=== PATIENT | male | born 1960 | race Caucasian/White ===

== ENCOUNTER 2023-08-28 04:18 | Inpatient (IN) | payer BC, SELFPAY ==
[2023-08-27 22:23] VITALS: BP 135/92
[2023-08-27 22:45] LABS: % Basophils 0.8 % (0-2); % Eosinophils 1.7 % (0-6); % Immature Granulocytes 0.4 % (0-0.5); % Lymphocytes 20.3 % (20.5-51.1); % Monocytes 7.9 % (1.7-9.3); % Neutrophils 68.9 % (42.2-75.2); Absolute Basophils 0.1 10^3/uL (0-0.2); Absolute Eosinophils 0.2 10^3/uL (0-0.7); Absolute Lymphocytes 2.1 10^3/uL (1.2-3.4); Absolute Monocytes 0.8 10^3/uL (0.1-0.6); Hematocrit 41.6 % (39.0-52.0); Hemoglobin 14.8 g/dL (13.0-18.0); Mean Corp Hgb Conc. 35.6 g/dL (33.0-37.0); Mean Corpuscular Hgb 28.9 pg (27.0-31.0); Mean Corpuscular Volume 81.3 fL (80.0-94.0); Mean Platelet Volume 9.5 fL (7.4-10.4); Nucleated Red Blood Cells % 0 % (-); Platelet Count 277 10^3/uL (130-400); Red Blood Cell Count 5.12 10^6/uL (4.70-6.10); Red Cell Dist. Width 12.9 % (11.5-14.5); White Blood Cell Count 10.2 10^3/uL (4.8-10.8)
[2023-08-27 22:55] LABS: INR 1.01; PT 13.3 Sec (11.4-14.6)
[2023-08-27 23:00] VITALS: BP 104/77
[2023-08-27 23:04] LABS: ALT (SGPT) 16 U/L (0-50); AST (SGOT) 22 U/L (17-59); Albumin 4.3 g/dl (3.5-5.0); Alkaline Phosphatase 183 U/L (38-126); Blood Urea Nitrogen 22 mg/dl (9-20); Calcium 9.3 mg/dl (8.4-10.2); Carbon Dioxide 21 mmol/L (22-30); Chloride 107 mmol/L (98-107); Estimated Creatinine Clearance 82 ml/min; Glucose 267 mg/dl (70-99); Potassium 3.6 mmol/L (3.5-5.1); Sodium 135 mmol/L (135-145); Total Bilirubin 0.6 mg/dl (0.2-1.3); Total Protein 7.1 g/dl (6.3-8.2); eGFR > 60.00
[2023-08-27 23:13] LABS: Troponin I 0.194 ng/ml
--- NOTE | 2023-08-27 23:59 | ED.GENMED ---
History of Present Illness
General
Chief Complaint: Cardiac Symptoms
Source: patient, family and ambulance crew
Exam Limitations: none
Time Seen by Provider: 08/27/23 23:31
Nursing documentation reviewed up to this point in time: agreed with
Travel History
Have you had any contact with someone who has COVID-19?: No
Do you have any symptoms of coronavirus? Fever > 100 degrees, chills, cough, shortness of breath, sore throat, loss of taste or smell, muscle aches, or headache?: No
History of Present Illness
History of Present Illness:
63 yo male presents to the emergency department c/o not feeling well for the past several days. At 8:45 PM tonight he was feeling dizzy as he was getting out of the shower and then his states they counted him being shocked 9 times.
Past History
Past History
ED Past Medical History: NIDDM
ED Past Surgical History: Cardiac (AICD)
Social History
Tobacco: Smoker
Alcohol: None
Drug: None
Personal:
Review of Systems
Review of Systems
Allergies reviewed?: Yes
All Other Systems: Not applicable
Constitutional: Reports no symptoms
EENT: Reports no symptoms
Respiratory: Reports no symptoms
Cardiac: Reports other (Shocked by AICD)
ABD/GI: Reports no symptoms
: Reports no symptoms
Musculoskeletal: Reports no symptoms
Skin: Reports no symptoms
Neurological: Reports no symptoms
Endocrine: Reports no symptoms
Hematologic/Lymphatic: Reports no symptoms
Psychiatric: Reports no symptoms
Phy Exam
Physical Exam
Physical Exam:
Physical Exam
General: no apparent distress, not acutely ill
Neck: supple. no meningeal signs. normal posterior pharynx
Heart: s1/s2 tachycardia, no murmur. equal radial
pulses. Pacemaker left upper chest
HEENT: Pupils equal round reactive to light, EOMI
Lungs: no acute respiratory distress. clear bilaterally
Abdomen: normal bowel sounds. not tender. no CVAT
Neuro: alert and oriented. no focal neurological deficits cranial nerves II through XII intact
Skin: no rash
Psychiatric: well kept. interactive and cooperative
Extremities: no edema. no calf tenderness. negative homans. good distal pulses
Course
Orders/Labs/Results
Orders:
Orders
08/27/23 22:23
Electrocardiogram (*1) Urgent
Reason for Study: Tachycardia
EKG- Treatment ONCE
08/27/23 22:37
Complete Blood Count/With Diff Urgent
Comprehensive Metabolic Panel Urgent
PT/INR [Prothrombin Time] Urgent
Troponin I Urgent
Abnormal Lab Results
08/27/23
22:37
Absolute Neuts (auto) 7.0 H 10^3/uL
(1.4-6.5)
Absolute Monos (auto) 0.8 H 10^3/uL
(0.1-0.6)
Lymphocytes % 20.3 L %
(20.5-51.1)
Carbon Dioxide 21 L mmol/L
(22-30)
BUN 22 H mg/dl
(9-20)
Glucose 267 H mg/dl
(70-99)
Alkaline Phosphatase 183 H U/L
(38-126)
Troponin I 0.194 H* ng/ml
08/27/23 22:37
08/27/23 22:37
Vital Signs
Initial and Last Documented VS:
Initial Vital Signs
Temp Pulse Resp BP Pulse Ox
98.5 F 129 18 135/92 98
08/27/23 22:23 08/27/23 22:23 08/27/23 22:23 08/27/23 22:23 08/27/23 22:23
Last Documented Vital Signs
Temp Pulse Resp BP Pulse Ox
98.5 F 92 20 108/70 96
08/27/23 22:23 08/28/23 02:30 08/28/23 02:30 08/28/23 02:00 08/28/23 02:30
MDM/Problems Addressed
Differential Diagnosis Includes:
Dysrhythmia, ventricular tachycardia
MDM/Problems Addressed:
63-year-old male with ventricular tachycardia and multiple AICD shocks. Currently stable. Discussed with cardiology, recommend trending troponins. Requested admit to hospitalist.
Chronic conditions affecting care: DM and Cardiomyopathy
Acute Exacerbation and/or Progression of Chronic Illness: DM and Cardiomyopathy
*Pulse Oximetry
Patient hypoxic: no
*EKG
Interpreted by ED Provider?: Yes
EKG Intrepretation Date: 08/28/23
EKG Intrepretation Time: 22:25
Interpretation: abnormal
Comparison EKG: changes noted
Heart Rate: 130
Rate: tachycardiac
Rhythm: ventricular paced
[place]: normal axis
Interval: normal interval
QRS Pattern: left bundle branch block
Ischemia: no ischemia
*Inspector Dials Interpretation
Rate: tachycardiac
Interpretation: abnormal
Heart Rate: 130
Rhythm: ventricular paced
*Critical Care Note
Total Time (30-74mins, 75-104mins- exclusive of procedures): Not Applicable
Data Reviewed
Review of Other/Old Records Reveals: Operative Reports (AICD pacemaker placed 06/02/2023)
Patient Management
Social determinants of health affecting care: Living situation
Discussion with other providers: Hospitalist and Plumber Gasfitter (Discussed with Dr. Rojas, cardiology)
Escalation/DeEscalation of care consider admission/obs:
Admit indicated
ED Attending Note
-
Portions of this chart may have been created with voice recognition software.� Occasional wrong word or��sound alike� substitutions may have occurred due to the inherent limitations of voice recognition software.
Discharge Plan
Departure
Patient Disposition: Admit
Date of Disposition: 08/28/23
Time of Disposition: 00:42
Admit to: IVU
Presentation/result/management discussed w/ accepting MD/DO: Hospitalist
Patient with high blood pressure during this ER visit?: No
Condition: Fair
Discharge Problem:
Ventricular tachycardia
Prescriptions:
No Action
metoprolol succinate 50 mg Tablet Extended Release 24 Hr
100 mg PO HS
spironolactone 25 mg Tablet
25 mg PO HS
lisinopril 10 mg Tablet
2.5 mg PO HS
pregabalin 75 mg Capsule
150 mg PO HS
Patient Comments:
08/27/2023: LAST FILLED 08/04/23, 90 TABS FOR 30 DAYS FROM [facility]
dapagliflozin propanediol [Farxiga] 10 mg Tablet
10 mg PO HS
atorvastatin 40 mg tablet
40 mg PO HS
clopidogrel 75 mg tablet
75 mg PO HS
aspirin 81 mg Tablet,Delayed Release (Dr/Ec)
162 mg PO HS
acetaminophen 500 mg Tablet
1,000 mg PO Q8HPRN PRN (Reason: mild pain)
oxycodone 5 mg tablet
5 mg PO Q4HPRN PRN (Reason: moderate pain)
Patient Comments:
08/27/2023: last filled 08/22/23, 42 tabs for 7 days from [facility]
duloxetine 30 mg capsule,delayed release(DR/EC)
30 mg PO HS
insulin glargine [Lantus Solostar U-100 Insulin] 100 unit/mL (3 mL) insulin pen
10 unit SC HS
Referrals:
Maye Peña DO [Family Provider] -
Interventions
Interventions:
*Risk Screen - Suicide Last Done: 08/27/23 22:24
*General Assessment Last Done: 08/27/23 22:24
*Neglect/Abuse Screening Last Done: 08/27/23 22:24
ED- Fall Risk Assessment Last Done: 08/28/23 02:29
*ED COVID-19 Vaccine History Last Done: 08/27/23 22:24
ED- Pulmonary Assessment Last Done: 08/27/23 22:26
ED- Cardiac Assessment Last Done: 08/27/23 22:26
Discharge Date and Time
Print Language: PASHTO
[2023-08-28] VITALS (23 sets, daily range): BP systolic 96–138; BP diastolic 70–109; BMI 24.0
--- NOTE | 2023-08-28 03:25 | HPS.HSE ---
Family Physician
-
Family Physician: Maye Peña
Chief Complaint
-
AICD fired
History of Present Illness
Patient is a 63y M with PMH significant for ASCVD, cardiomyopathy and DM-II who presents to ED for evaluation after his AICD fired multiple times at home. Patient states that he has been feeling relatively poorly for the past 2-3 days or so. He
reports mild symptoms of lightheadedness / dizziness, dyspnea with activity and fatigue. No chest pain. No palpitations. No fevers / chills or other complaints.
This evening he stepped out of the shower and felt a sudden, heavy pain in his chest. He had an additional 3 episodes while in the bathroom and then another 6 episodes several minutes later.
Patient states that his defibrillator has never gone off previously.
He denies LOC or complete collapse during these episodes.
His last shock occurred just prior to EMS arrival - none since that time.
He currently feels fairly well - other than some residual chest discomfort / heaviness and general fatigue.
Medical History
Past Medical History
Past Medical History: Reports Other
Additional Past Medical History:
ASCVD
Ischemic Cardiomyopathy
CHFrEF
DM-II
Past Surgical History: Reports Other
Additional Past Surgical History:
PTCA with Stent x 2
AICD Placement (05/2023)
R Rotator Cuff Surgery
R TKA (4 weeks ago - [facility] - Dr. Horne)
Social History
Tobacco: Former Smoker (Quit smoking 3 months ago. > 50 pack years total history.)
Alcohol: None
Drug: None
Family History
Family History: Not pertinent
Allergies / Home Medications
Allergies reflects when Allergies were last updated in [facility].
Home Medications with original date entered in [facility]
Allergy/Medication List:
Allergies
Allergy/AdvReac Type Severity Reaction Status Date / Time
No Known Allergies Allergy Unverified 06/02/23 07:14
Home Medications
lisinopril 10 mg tablet 2.5 mg PO HS Heart Failure 01/15/23
metoprolol succinate 50 mg tablet,extended release 24 hr 100 mg PO HS Heart Disease/Condition 01/15/23
spironolactone 25 mg tablet 25 mg PO HS Heart Failure 01/15/23
atorvastatin 40 mg tablet 40 mg PO HS High Cholesterol 06/02/23
clopidogrel 75 mg tablet 75 mg PO HS Blood Clot Prevention/Tx 06/02/23
dapagliflozin propanediol 10 mg tablet (Farxiga) 10 mg PO HS Heart Failure 06/02/23
pregabalin 75 mg capsule 150 mg PO HS Mental Health/Anxiety 06/02/23
acetaminophen 500 mg tablet 1,000 mg PO Q8HPRN PRN mild pain 08/27/23
aspirin 81 mg tablet,delayed release 162 mg PO HS 08/27/23
duloxetine 30 mg capsule,delayed release 30 mg PO HS 08/27/23
insulin glargine 100 unit/mL (3 mL) subcutaneous pen (Lantus Solostar U-100 Insulin) 10 unit SC HS 08/27/23
oxycodone 5 mg tablet 5 mg PO Q4HPRN PRN moderate pain 08/27/23
Review of Systems
-
History Source: Patient
A 12 point ROS was completed and negative except as noted: Yes
Constitutional: Reports Fatigue; Denies Fever or Chills
EENT: Denies Sore Throat
Respiratory: Reports Trouble Breathing; Denies Cough
Cardiac: Reports Chest Pain; Denies Diaphoresis, Palpitations or Syncope
Abdomen/GI: Denies Abdominal Pain, Nausea or Vomiting
: Denies Dysuria or Frequency
Musculoskeletal: Denies Joint Pain or Edema
Neurological: Reports Dizzy; Denies Headache
Psych: Denies Depression or Anxiety
Physical Exam
Vital Signs
Vital Signs
Temp Pulse Resp BP Pulse Ox
98.5 F 92 20 108/70 96
08/27/23 22:23 08/28/23 02:30 08/28/23 02:30 08/28/23 02:00 08/28/23 02:30
Physical Exam
General: Other (63y M in no acute distress.)
HEENT: Moist mucous membranes and PERRLA
Respiratory: Clear; No Wheezes, Rales or Rhonchi
Cardiac: S1/S2 and Regular Rhythm; No Murmur
GI: Soft, Non Tender, Non Distended and Normal Bowel Sounds
Musculoskeletal: No Clubbing, No Cyanosis, No Edema and Other (R TKA incision healing well. No bleeding / discharge / erythema.)
Neuro: AO x 3
Laboratory Results
-
08/27/23 22:37
08/27/23 22:37
Laboratory Results
PT 13.3 Sec (11.4-14.6) 08/27/23 22:37
INR 1.01 08/27/23 22:37
Total Bilirubin 0.6 mg/dl (0.2-1.3) 08/27/23 22:37
AST 22 U/L (17-59) 08/27/23 22:37
ALT 16 U/L (0-50) 08/27/23 22:37
Alkaline Phosphatase 183 U/L (38-126) H 08/27/23 22:37
Troponin I 0.194 ng/ml H* 08/27/23 22:37
Impression/Plan
-
A/P: Patient is a 63y M with PMH significant for ASCVD and ischemic cardiomyopathy who presents to ED for evaluation after his AICD fired multiple times this evening.
ASCVD
Ischemic Cardiomyopathy
Chronic HFrEF
VT / VF secondary to the above
- Admit to IVU for further evaluation and treatment.
- No recurrent VF / VT since arrival.
- Device interrogation noted VT this evening with 14 total shocks (patient appreciated 9) - 13 of which failed.
- Final shock was successful and patient is now in V paced rhythm.
- Monitor for any recurrence.
- Begin IV amio infusion should VT / VF recur on tele and / or AICD fire again.
- Cardiology evaluation.
- Continue usual CV med regimen.
DM-II
- Stable. Continue basal : bolus insulin regimen.
- Follow glucose and cover with SSI as needed.
- Update A1C.
s/p R TKA
- Patient notes that he had R TKA done at [facility] 4 weeks ago.
- Recovery doing well per patient. Incision healing well.
- Pain control as needed.
- PT eval.
DVT Prophylaxis: SCDs
Code Status: Full
[2023-08-28 06:04] LABS: Hematocrit 38.1 % (39.0-52.0); Hemoglobin 13.4 g/dL (13.0-18.0); Mean Corp Hgb Conc. 35.2 g/dL (33.0-37.0); Mean Corpuscular Hgb 29.1 pg (27.0-31.0); Mean Corpuscular Volume 82.8 fL (80.0-94.0); Mean Platelet Volume 9.8 fL (7.4-10.4); Platelet Count 283 10^3/uL (130-400); Red Cell Dist. Width 12.9 % (11.5-14.5); White Blood Cell Count 9.1 10^3/uL (4.8-10.8)
--- NOTE | 2023-08-28 06:17 | PTCARENOTE ---
Patient admitted to IVU, assisted to bed. Recent right TKR, incision healing. V-paced on telemetry. Abrasion on right upper arm. EKG performed, labs collected, call bel in reach
[2023-08-28 06:35] LABS: Blood Urea Nitrogen 18 mg/dl (9-20); Calcium 9.3 mg/dl (8.4-10.2); Carbon Dioxide 20 mmol/L (22-30); Chloride 105 mmol/L (98-107); Estimated Creatinine Clearance 91 ml/min; Glucose 135 mg/dl (70-99); Magnesium 1.9 mg/dl (1.6-2.3); Potassium 3.6 mmol/L (3.5-5.1); Sodium 137 mmol/L (135-145); eGFR > 60.00
[2023-08-28 06:51] LABS: TSH Reflex To Free T4 1.33 uIU/ml (0.47-4.68)
--- NOTE | 2023-08-28 07:07 | CON.CAR ---
Addendum entered and electronically signed by Divina Sabillon DO 08/28/23 15:27:
I saw and examined the patient.
The Label Drier's note was reviewed and I agree with the note.
Comment: Patient was seen and examined several times this morning prior to cardiac catheterization. Reviewed his device interrogation with [employer] rep. Also reviewed case with EP, Dr. Fajardo and his outpatient salvager helper Dr. Yas Katz.
Mr Cam is a 63-year-old man with a past medical history significant for hypertension, hyperlipidemia, ongoing heavy smoking, insulin-dependent diabetes mellitus, and LV systolic dysfunction first diagnosed in 2015. Cardiac catheterization at
that time showed nonobstructive coronary disease consistent with a nonischemic etiology for his LV dysfunction. LV function subsequently improved on medical therapy. More recently he underwent echocardiography on December 05, 2022 which showed a drop
in ejection fraction to 25 to 30%. Nuclear perfusion imaging was performed and was high risk with severe resting perfusion abnormalities in the inferior, inferolateral, anterior and apical segments. The patient also had sustained VT very early
into the exercise protocol which resolved with rest. Based on this he had repeat heart catheterization on January 15, 2023 and underwent to stents in the RCA (3.5 x 18 mm and 3.5 x 28 mm Xience josé point drug-eluting stents, postdilated with a 3.5
mm NC balloon at 18 arleen distally and a 4.0 mm NC balloon proximally). His LVEF unfortunately not improved significantly post PCI he underwent a [employer] WIRE DROPPER-D placement in May 2023. He had been doing well on dual antiplatelet therapy which
was discontinued for 5 days in the setting of a total knee replacement on July 31, 2023 and resumed soon after that. Over the last few days he has been experiencing progressive dyspnea on exertion, lightheadedness and fatigue and had recurrent ICD
shocks yesterday for VT VF and is now being referred for left heart catheterization to rule out obstructive CAD.
General: No acute distress, AAOX3
Neck: Negative JVD
Heart: Regular, positive S1/S2, 1/6 SM. Device site intact
Lungs: CTA b/l, negative wheezes/rales/rhonchi
Abd: Positive BS, NT/ND, neg rebound/rigidity/guarding
Ext: Right total knee replacement 07/31/2023 with mild knee swelling. No lower extremity edema.
Neuro: nonfocal
Plan:
63-year-old gentleman with history of cardiomyopathy first diagnosed in 2015 with recent worsening of LV systolic function found to have significant RCA disease in January 2023 status post 2 drug-eluting stents. He also has a history of
hypertension, dyslipidemia, insulin-dependent diabetes mellitus type 2 and ongoing tobacco dependence. Unfortunately his ejection fraction did not improve post revascularization and he underwent placement of [employer] WIRE DROPPER-D May 2023. He
recently underwent right total knee replacement surgery 07/31/2023 which required him to be off Plavix for approximately 5 days. At the time of admission he was on aspirin and Plavix. For the last few weeks he has noted some lightheadedness and
dizziness. Device downloads have noted NSVT per Dr. Connor prompting them to reduce lisinopril from 10 mg to 2.5 mg to allow for more beta-arti. Metoprolol succinate was up titrated to 100 mg nightly. He presented yesterday after
lightheadedness without syncope and multiple ICD shocks secondary to VT storm.
-Device interrogation reviewed with [employer] lead customer service representative. Normal function. 14 shocks for VT/VF, 13 failed. Multiple episodes of ATP which were unsuccessful. 9 of the treated VT/VF episodes were longer than 30 seconds.
-This morning around 7:45 AM patient had VT on monitor without shock.
-IV amiodarone initiated. Continue metoprolol succinate
-Patient denies preceding chest pain or pressure but states that even prior to his RCA stents he never had chest pain. Peak cardiac troponin 1.2.
-Discussed case with multiple care team members: Plan for left heart catheterization today. Patient is agreeable
Addendum entered and electronically signed by Mayela Barakat PA-C 08/28/23 12:27:
Right TKA was 07/31/23. He missed 5 days of Plavix in total surrounding TKA.
Original Note:
Consultation
Consultation Request
Date/Time Consultation Requested: 08/28/23 at 0451
Date/Time Consultation Performed: 08/28/23 at 0711
Requesting Provider: Hospitalist
Performing Provider: Dr. Sabillon
Reason for Consultation: VT, AICD shock
Medical History
-
History of Present Illness:
Patient came to [facility] last night with ICD shocks and cardiology is now consulted. Patient has a h/o ICM with RCA PCI 01/2023. EF did not improve with PCI and medical therapy so he had [employer] WIRE DROPPER-D placed 05/2023. Patient had a right TKA at [facility] last month and says he has been feeling tired and dizzy with changes in position since then. He just started rehab within the last 2 weeks and is able to complete his sessions, but is exhausted. No chest pain or SOB. Patient was in the shower
last night and upon leaving the shower he felt dizzy and the next thing he recalls is waking up on the floor. He says he feels fine now.
PMH:
ICM EF 25-30% by echo 08/25/23
s/p [employer] WIRE DROPPER-D 05/2023
CAD s/p 3.5 mm and 3.5 mm Xience to RCA 01/15/23
CAD with residual small vessel CAD by cath 01/15/23
s/p Right TKA at [facility]' 07/2023
HTN
HLD
DM2
LBBB
Active smoker
Past Medical History
Past Medical History: Other (in HPI)
Past Surgical History: Cardiac ([employer] WIRE DROPPER-D 05/2023, RCA PCI 01/2023) and Orthopedic
Social History
Tobacco: Smoker
Alcohol: None
Drug: None
Personal:
Living: With Family
Family History
Family History: Other (FH of PPM)
Allergies / Home Medications
Allergy/AdvReac Type Severity Reaction Status Date / Time
No Known Allergies Allergy Verified 08/28/23 06:09
�Medication �Instructions �Recorded �Confirmed �Type
lisinopril 10 mg tablet 2.5 mg PO HS Heart Failure 01/15/23 08/28/23 History
metoprolol succinate 50 mg 100 mg PO HS Heart 01/15/23 08/28/23 History
tablet,extended release 24 hr Disease/Condition
spironolactone 25 mg tablet 25 mg PO HS Heart Failure 01/15/23 08/28/23 History
atorvastatin 40 mg tablet 40 mg PO HS High Cholesterol 06/02/23 08/28/23 History
clopidogrel 75 mg tablet 75 mg PO HS Blood Clot 06/02/23 08/28/23 History
Prevention/Tx
dapagliflozin propanediol 10 mg 10 mg PO HS Heart Failure 06/02/23 08/28/23 History
tablet (Farxiga)
pregabalin 75 mg capsule 150 mg PO HS Mental Health/Anxiety 06/02/23 08/28/23 History
acetaminophen 500 mg tablet 1,000 mg PO Q8HPRN PRN mild pain 08/27/23 08/28/23 History
aspirin 81 mg tablet,delayed 162 mg PO HS 08/27/23 08/28/23 History
release
duloxetine 30 mg capsule,delayed 30 mg PO HS 08/27/23 08/28/23 History
release
insulin glargine 100 unit/mL (3 10 unit SC HS 08/27/23 08/28/23 History
mL) subcutaneous pen (Lantus
Solostar U-100 Insulin)
oxycodone 5 mg tablet 5 mg PO Q4HPRN PRN moderate pain 08/27/23 08/28/23 History
Review of Systems
-
History Source: Patient
All other systems: Negative unless noted
Physical Exam
Vital Signs
Temp Pulse Resp BP Pulse Ox
97.7 F 89 18 130/88 96
08/28/23 06:13 08/28/23 06:16 08/28/23 06:13 08/28/23 05:44 08/28/23 06:13
GEN: NAD, AAOx3
HEENT: EOMI, MMM
LUNGS: CTA B/L, no wheezes or rales
CV: Reg, S1/S2, no murmur
ABD: soft, BS+, NT, ND
EXT: No clubbing, cyanosis, lesions or edema B/L
NEURO: Gross non-focal
SKIN: Warm, dry and pink. No rash
Lab Results
08/28/23 05:54
08/28/23 05:54
Troponin I 1.200 ng/ml H* D 08/28/23 05:54
Impression / Plan
-
Primary Physician: Maye Peña, DO
Primary Business Continuity Specialist: Guy Connor MD, ATC
Impression:
VT storm with multiple failed ICD therapies and then successful AICD shock 08/27/23
Elevated Troponin
ICM EF 25-30% by echo 08/25/23
s/p [employer] WIRE DROPPER-D 05/2023
CAD s/p 3.5 mm and 3.5 mm Xience to RCA 01/15/23
CAD with residual small vessel CAD by cath 01/15/23
s/p Right TKA at [facility] 07/2023
HTN
HLD
DM2
LBBB
Active smoker
Echo 08/25/23: ATC study, EF 25-30%, sev conc LVH, grade I diastolic dysfunction, normal RV size and function
Plan:
-Patient came to [facility] last night with ICD shocks and cardiology is now consulted. Patient has a h/o ICM with RCA PCI 01/2023. EF did not improve with PCI and medical therapy so he had [employer] WIRE DROPPER-D placed 05/2023. Patient had a right TKA at [facility] last month and says he has been feeling tired and dizzy with changes in position since then. He just started rehab within the last 2 weeks and is able to complete his sessions, but is exhausted. No chest pain or SOB. Patient was in the shower
last night and upon leaving the shower he felt dizzy and the next thing he recalls is waking up on the floor. He says he feels fine now.
-Patient with recurrence of VT on tele at 0745 this AM. Will start amiodarone gtt at 1 mg/min and then 0.5 mg/min. He was not taking an AAD prior to admission.
-Potassium 3.6 last night and again this AM. Will give KCl 40 meq PO now. Magnesium is 1.9. Will supplement with magnesium oxide 500 mg PO now.
-Echo from Friday at [facility] obtained and reviewed above. Called to request records form [facility]. Records obtained and summarized above.
-Will repeat f/u echo study today
-Troponin up to 1.2. No chest pain. ECG reviewed by me is paced. Talked to patient about possible cardiac cath and he says that he does not want a cath, but is willing to discuss more once his daughter arrives. He had residual small vessel CAD after
RCA PCI 01/2023. He interrupted Plavix for TKA last month, but has been back on DAPT using aspirin 162 mg daily for the last 3 weeks.
-Cont Farxiga 10 mg daily, spironolactone 25 mg HS, lisinopril 2.5 mg daily and Toprol XL 100 mg daily.
[2023-08-28] MEDS: KCL 40 MEQ PO (08:04)
[2023-08-28 08:37] LABS: Glycohemoglobin (HgbA1c) 7.4 % (4.0-5.6)
--- NOTE | 2023-08-28 08:44 | W.PN.HOSP.TC ---
Today's Communication/Plan
-
see A/P
Assessment / Plan
Assessment / Plan
HPI: 63y M with PMH significant for ASCVD, cardiomyopathy and DM-II who presented to ED for evaluation after his AICD fired multiple times at home. Patient states that he has been feeling relatively poorly for the past 2-3 days or so. He reported
mild symptoms of lightheadedness / dizziness, dyspnea with activity and fatigue. No chest pain. No palpitations. No fevers / chills or other complaints.
In the evening of admission, he stepped out of the shower and felt a sudden, heavy pain in his chest. He had an additional 3 episodes while in the bathroom and then another 6 episodes several minutes later.
Patient states that his defibrillator has never gone off previously.
He denies LOC or complete collapse during these episodes.
His last shock occurred just prior to EMS arrival - none since that time.
A/P:
# ASCVD
# Ischemic Cardiomyopathy
# Chronic HFrEF
# VT / VF secondary to the above
Device interrogation noted VT with 14 total shocks (patient appreciated 9) - 13 of which failed.
Final shock was successful and patient is now in V paced rhythm.
Monitor for any recurrence.
Amio per cardiology
Keep K at 4.0 and Mag at 2.0
Continue usual CV med regimen.
Check Echo
Cardiology evaluation.
# DM-II - Stable.
Continue basal : bolus insulin regimen. Lantus at 10 units HS
Follow glucose and cover with SSI as needed.
Update A1C.
# s/p R TKA
Patient notes that he had R TKA done at [facility] 4 weeks ago TIP BANDER.
Recovery doing well per patient. Incision healing well.
Pain control as needed.
PT eval.
DVT Prophylaxis: SCDs
Code Status: Full
Anticipated Discharge: 24 - 48 hours
Subjective/Interval History
-
Date of Service: August 28, 2023
Objective Data
-
Labs:
Laboratory Results
08/27/23 08/28/23
22:37 05:54
WBC 10.2 9.1
Hgb 14.8 13.4
Hct 41.6 38.1 L
Plt Count 277 283
PT 13.3
INR 1.01
Sodium 135 137
Potassium 3.6 3.6
Chloride 107 105
Carbon Dioxide 21 L 20 L
BUN 22 H 18
Creatinine 1.0 0.9
Glucose 267 H 135 H
Calcium 9.3 9.3
Total Bilirubin 0.6
AST 22
ALT 16
Alkaline Phosphatase 183 H
Vital Signs:
Vital Signs
Temp Pulse Resp BP Pulse Ox
36.5 C 97 18 130/88 96
08/28/23 06:13 08/28/23 07:00 08/28/23 06:13 08/28/23 05:44 08/28/23 06:13
Review of Systems
-
All other systems: Reviewed and negative
Physical Exam
-
General: Well Developed, Well Nourished, No Apparent Distress, Comfortable and Conversant; Negative Respiratory Distress
HEENT: Normocephalic, Atraumatic, Nose Appears Normal and Ears Appear Normal; Negative Oxygen
Respiratory: Clear to Auscultation and Non Labored Respirations; Negative Accessory Resp Muscle Use
Cardiac: Regular Rhythm and S1/S2
GI: Soft, Nontender, Nondistended and Normal Bowel Sounds
Skin: Warm and Dry
Neuro: Awake, Alert, Oriented and AO x 3
Psych: Calm and Intact Judgement/Insight
Data Reviewed
-
Labs: Labs Reviewed by me
[2023-08-28 08:51] LABS: Glucose - Point of Care 160 mg/dl (70-99)
--- NOTE | 2023-08-28 09:04 | W.CARD.DEVCH ---
Cardiac Device Check
-
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
Educational Administration Teacher: Access [employer]
The patient's device was interrogated with assistance of the device credit resolution representative followed by a complete physician review. The device had normal function. No abnormalities seen.
[facility] express transmission:
116 monitored NSVT episodes 08/27/23
14 shocks for VT/VF, 13 failed
[2023-08-28] MEDS: CORDARONE 518 MG IV (09:13)
[2023-08-28] MEDS: MAGNESIUM OXIDE 500 MG PO (09:20)
[2023-08-28] MEDS: NOVOLOG FLEXPEN-LOW RESISTANCE SC (09:46)
--- NOTE | 2023-08-28 10:28 | ITS.CL.CATH ---
Mobile Heavy Equipment Mechanic - Catheterization
Cardiac Catheterization
Procedure Report:
LEFT HEART CATHETERIZATION
Date of Procedure: August 28, 2023
Referring: Jordy Everett
Primary Care Physician: Dr. Maye Peña
Primary Wood Milling Machine Tender: Dr. Guy Katz
PROCEDURES:
1. Left heart catheterization, coronary angiogram.
2. Ultrasound-guided access
INDICATION: Mr Cam is a 63-year-old man with a past medical history significant for hypertension, hyperlipidemia, ongoing heavy smoking, insulin-dependent diabetes mellitus, and LV systolic dysfunction first diagnosed in 2015. Cardiac
catheterization at that time showed nonobstructive coronary disease consistent with a nonischemic etiology for his LV dysfunction. LV function subsequently improved on medical therapy. More recently he underwent echocardiography on December 05, 2022
which showed a drop in ejection fraction to 25 to 30%. Nuclear perfusion imaging was performed and was high risk with severe resting perfusion abnormalities in the inferior, inferolateral, anterior and apical segments. The patient also had
sustained VT very early into the exercise protocol which resolved with rest. Based on this he had repeat heart catheterization on January 15, 2023 and underwent to stents in the RCA (3.5 x 18 mm and 3.5 x 28 mm Xience josé point drug-eluting
stents, postdilated with a 3.5 mm NC balloon at 18 arleen distally and a 4.0 mm NC balloon proximally). His LVEF unfortunately not improved significantly post PCI he underwent a Medtronic NEUROLOGY TECH-D placement in May 2023. He had been doing well on
dual antiplatelet therapy which was discontinued for 5 days in the setting of a total knee replacement on July 31, 2023 and resumed soon after that. Over the last few days he has been experiencing progressive dyspnea on exertion, lightheadedness
and fatigue and had recurrent ICD shocks yesterday for VT VF and is now being referred for left heart catheterization to rule out obstructive CAD.
ACCESS: Right radial artery, 6 Somali sheath, under ultrasound-guidance
HEMODYNAMICS : (mmHg)
AO (s/d) : 105/75
LV (s/d) : 111/7
LVEDP : 12
CORONARY FINDINGS
DOMINANCE: Right
LEFT MAIN: The left main artery is a medium caliber vessel with mild distal tapering.
LEFT ANTERIOR DESCENDING: The left anterior descending artery is a medium to large caliber vessel that has moderate diffuse atherosclerotic plaque without clear focal obstructive stenosis. As it courses through the anterior interventricular groove
and wraps around the apex and gives rise to 1 major large caliber diagonal branch that has stable 50% stenosis in the midportion followed by mild diffuse atherosclerotic plaque in the distal vessels. CHAR-3 flow is noted in all distal vessels.
CIRCUMFLEX: The left circumflex artery is a medium to large caliber, nondominant vessel which gives rise to 3 major obtuse marginal branches. The first obtuse marginal branch is a large-caliber vessel with mild luminal irregularities and severe
distal small vessel disease which appears stable compared to prior heart catheterizations dating back to 2016. The second obtuse marginal branch is a medium caliber vessel with mild diffuse luminal irregularities. The third obtuse marginal branch
has 2 serial 50 to 60% stenosis in the mid to distal vessel which appears stable compared to last heart catheterization in January 2023 with CHAR-3 flow in all distal vessels.
RIGHT CORONARY ARTERY: The right coronary is a large-caliber, dominant vessel which gives rise to the right posterior descending artery and a small right posterolateral system. Recently placed mid and distal RCA stents from January, are
widely patent. The right posterior descending artery has moderate diffuse luminal irregularities at worst 40%. CHAR-3 flow is present in all vessels.
SEDATION: 34 minutes of procedural sedation was utilized. An independent medical physics professor was present to assist with and help manage the patient's level of consciousness and physiologic status.
RADIATION SUMMARY: Fluoro Time (min): 2.8, Dose (mGy): 368.08, DAP (Gy.cm2) : 24.4
Closure Device: Vascular band over right radial artery, 10 cc of air.
CONCLUSIONS
1. Recent to mid and distal RCA stents from January, widely patent.
2. Mild to moderate coronary artery disease otherwise which appears stable angiographically compared to heart catheterization from January,.
3. Normal LVEDP at 12 mmHg.
RECOMMENDATIONS
1. Wean radial band per protocol.
2. 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
3. Discussed with electrophysiology potential role for VT ablation in addition to medical therapy.
Copy to: Dr. Maye Peña, Dr. Guy Katz, Divina Sabillon, and Caty Orozco
Nanette Gutierrez MD, [facility], [facility]
--- NOTE | 2023-08-28 10:31 | PTCARENOTE ---
Pt received from night order selector RN. AAOx3, resting in bed. 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 While ambulating to bathroom pt HR up to 160-170s. Asymptomatic. Pt did not report AICD shock. Pt returned to bed and HR back down to 80s-90s. AS400 CONSULTANT
aware. IV amio gtt initiated per order. Infusing through new PIV placed today by RN in L arm. Vitals stable at this time. Pt remains NPO for possible cath today. Assessment documented. Pt without complaint at this time.
--- NOTE | 2023-08-28 10:38 | CM ---
Chart reviewed. Patient is independent of ADLS, lives with his in a 1 STH, 2 MEETA, 0 DME. Patient currently with no discharge needs. Plan is for the patient to return home. CM to follow
[2023-08-28] MEDS: LOW STRENGTH ASPIRIN 162 MG PO (11:00)
[2023-08-28] MEDS: PLAVIX 75 MG PO (11:00)
[2023-08-28 12:35] LABS: Glucose - Point of Care 169 mg/dl (70-99)
[2023-08-28] MEDS: NOVOLOG FLEXPEN-LOW RESISTANCE 1 UNITS SC (12:35)
[2023-08-28 12:37] LABS: Troponin I 0.833 ng/ml
[2023-08-28] MEDS: TYLENOL 650 MG PO ×2 (13:57→20:12)
--- NOTE | 2023-08-28 14:05 | PTCARENOTE ---
Pt received from cath lab radiology technician s/p [facility]. R radial TR band applied at 1333. 10mL remaining in TR band when pt received. Neurovascular checks WDL. Family at bedside with pt.
[2023-08-28] MEDS: PACERONE 400 MG PO ×2 (16:08→22:23)
--- NOTE | 2023-08-28 17:06 | CARDSERVLU ---
Echocardiogram with Lumason completed after protocol screening completed. Allergies verified.
Patent IV site: ___RAC__
IV site flushed with 0.9% NaCl pre and post administration.
Diluted bolus method utilized to enhance visualization of ventricular [place].
Total volume given: __4__ mL
Patient tolerated all procedures well without complications.
[2023-08-28 17:37] LABS: Glucose - Point of Care 220 mg/dl (70-99)
[2023-08-28] MEDS: NOVOLOG FLEXPEN-LOW RESISTANCE 2 UNITS SC (17:37)
--- NOTE | 2023-08-28 21:24 | PTCARENOTE ---
Pt received start of shift, HR 100% V-paced. Amiodarone infusing at 0.5mg/min into L forearm/AC site. Pt c/o 09/18 pain in R knee, tylenol administered. Slightly effective, new rating 07/19. R radial cath site dressing CDI, soft, no hematoma. Educated
pt on plan of care, pt states no questions at this time. Pt denies any CP, SOB, or lightheadedness/dizziness at this time. Informed to notify RN if any changes, call borges within reach.
[2023-08-28 21:35] LABS: Glucose - Point of Care 162 mg/dl (70-99)
[2023-08-28] MEDS: LANTUS 0.100000000000000006 UNITS SC (22:22)
[2023-08-28] MEDS: TOPROL XL 100 MG PO (22:23)
[2023-08-28] MEDS: ALDACTONE 25 MG PO (22:23)
[2023-08-28] MEDS: LYRICA 150 MG PO (22:23)
[2023-08-28] MEDS: LIPITOR 40 MG PO (22:23)
[2023-08-28] MEDS: ASPIR LOW (ENTERIC COATED) 162 MG PO (22:23)
[2023-08-28] MEDS: FARXIGA 10 MG PO (22:23)
[2023-08-28] MEDS: ZESTRIL 2.5 MG PO (22:24)
--- NOTE | 2023-08-28 23:42 | VATNOTE ---
CALLED TO ASSESS IV SITE IN LFA. NO SWELLING NOTED, NO FIRMNESS OR DISCOMFORT REPORTED BY PT. ARE ABOVE INSERTION SITE APPEARS SLIGHTLY PINK. D/C'D DOCUMENTED AND NEW IV SITE ESTABLISHED.
[2023-08-29] VITALS (10 sets, daily range): BP systolic 95–114; BP diastolic 69–83; PULSE 71–72; O2SAT 99; BMI 23.6
[2023-08-29 04:32] LABS: Hematocrit 36.5 % (39.0-52.0); Hemoglobin 12.1 g/dL (13.0-18.0); Mean Corp Hgb Conc. 33.2 g/dL (33.0-37.0); Mean Corpuscular Hgb 29.3 pg (27.0-31.0); Mean Corpuscular Volume 88.4 fL (80.0-94.0); Mean Platelet Volume 10.3 fL (7.4-10.4); Platelet Count 233 10^3/uL (130-400); Red Blood Cell Count 4.13 10^6/uL (4.70-6.10); Red Cell Dist. Width 13.2 % (11.5-14.5); White Blood Cell Count 8.9 10^3/uL (4.8-10.8)
[2023-08-29 06:46] LABS: Blood Urea Nitrogen 15 mg/dl (9-20); Calcium 9.4 mg/dl (8.4-10.2); Carbon Dioxide 23 mmol/L (22-30); Chloride 108 mmol/L (98-107); Estimated Creatinine Clearance 82 ml/min; Glucose 146 mg/dl (70-99); Magnesium 1.9 mg/dl (1.6-2.3); Potassium 4.4 mmol/L (3.5-5.1); Sodium 136 mmol/L (135-145); eGFR > 60.00
--- NOTE | 2023-08-29 07:15 | PTCARENOTE ---
IV amiodarone therapy completed. I removed the left forearm IV that the amiodarone was running through.
[2023-08-29] MEDS: PACERONE 400 MG PO ×3 (07:41→22:30)
[2023-08-29 07:42] LABS: Glucose - Point of Care 162 mg/dl (70-99)
[2023-08-29] MEDS: NOVOLOG FLEXPEN-LOW RESISTANCE SC ×3 (07:48→17:53)
--- NOTE | 2023-08-29 07:50 | PTCARENOTE ---
The patient was wondering why he couldn't eat. I explained to him that the doctors were discussing a possibility of doing a VT ablation on him today. I explained to him all about his defibrillator, the rhythm it fired for, and what the a VT ablation
does to help prevent that rhythm. The patient became tearful after our discussion. I provided comfort and therapeutic communication throughout.
--- NOTE | 2023-08-29 09:33 | PTCARENOTE ---
The patient's called. She is concerned about new medications being prescribed. She said her pharmacy is only opened till 2pm on Friday and closed on Friday. If new medications are going to be ordered she asked if they could be ordered early
so she can pick them up. I will pass on the 's request to the doctors.
--- NOTE | 2023-08-29 10:01 | PTCARENOTE ---
The patient didn't want to take insulin this morning because didn't eat his breakfast, he only drank his juice.
--- NOTE | 2023-08-29 10:17 | W.PN.HOSP.TC ---
Addendum entered and electronically signed by Nely Simmons MD 08/29/23 16:46:
# Non ischemic myocardial injury
Original Note:
Today's Communication/Plan
-
se4e A/P
Assessment / Plan
Assessment / Plan
HPI: 63y M with PMH significant for ASCVD, cardiomyopathy and DM-II who presented to ED for evaluation after his AICD fired multiple times at home. Patient states that he has been feeling relatively poorly for the past 2-3 days or so. He reported
mild symptoms of lightheadedness / dizziness, dyspnea with activity and fatigue. No chest pain. No palpitations. No fevers / chills or other complaints.
In the evening of admission, he stepped out of the shower and felt a sudden, heavy pain in his chest. He had an additional 3 episodes while in the bathroom and then another 6 episodes several minutes later.
Patient states that his defibrillator has never gone off previously.
He denies LOC or complete collapse during these episodes.
His last shock occurred just prior to EMS arrival - none since that time.
A/P:
# ASCVD
# Ischemic Cardiomyopathy
# Chronic HFrEF
# VT / VF secondary to the above
Device interrogation noted VT with 14 total shocks (patient appreciated 9) - 13 of which failed. Final shock was successful and patient is now in V paced rhythm.
s/p cardiac cath 08/27 unrevealing: Patent mid and distal RCA stents from January,. Mild to moderate CAD appears stable
Echo noted EF 15 to 20%, Grade 1 diastolic dysfunction
Pt was started with Amio per Card, currently on 400 mg TID
Continue usual CV med regimen.
Cardiology on board
# DM-II - Stable.
Continue basal : bolus insulin regimen. Lantus at 10 units HS
Follow glucose and cover with SSI as needed.
A1C 7.4%.
# s/p R TKA
Patient notes that he had R TKA done at 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
Recovery doing well per patient. Incision healing well.
Pain control as needed.
PT eval.
DVT Prophylaxis: SCDs
Code Status: Full
Anticipated Discharge: 24 - 48 hours
Subjective/Interval History
-
Date of Service: August 29, 2023
Objective Data
-
Labs:
Laboratory Results
08/29/23 08/29/23
04:06 06:19
WBC 8.9
Hgb 12.1 L
Hct 36.5 L
Plt Count 233
Sodium Cancelled 136
Potassium Cancelled 4.4
Chloride Cancelled 108 H
Carbon Dioxide Cancelled 23
BUN Cancelled 15
Creatinine Cancelled 1.0
Glucose Cancelled 146 H
Calcium Cancelled 9.4
Vital Signs:
Vital Signs
Temp Pulse Resp BP Pulse Ox
36.4 C 63 18 110/72 97
08/29/23 07:37 08/29/23 10:00 08/29/23 07:37 08/29/23 07:37 08/29/23 07:37
I&O
08/28/23 08/29/23 08/30/23
06:59 06:59 06:59
Intake Total 360 / 360
Output Total 1400 / 1400
Balance -1040 / -1040
Review of Systems
-
All other systems: Reviewed and negative
Physical Exam
-
General: Well Developed, Well Nourished, No Apparent Distress, Comfortable and Conversant; Negative Respiratory Distress
HEENT: Normocephalic, Atraumatic, Nose Appears Normal and Ears Appear Normal; Negative Oxygen
Respiratory: Clear to Auscultation and Non Labored Respirations; Negative Accessory Resp Muscle Use
Cardiac: Regular Rhythm and S1/S2
GI: Soft, Nontender, Nondistended and Normal Bowel Sounds
Skin: Warm and Dry
Neuro: Awake, Alert, Oriented and AO x 3
Psych: Calm and Intact Judgement/Insight
Data Reviewed
-
Labs: Labs Reviewed by me
[2023-08-29 12:03] LABS: Glucose - Point of Care 201 mg/dl (70-99)
[2023-08-29 14:36] LABS: Glucose - Point of Care 177 mg/dl (70-99)
[2023-08-29] MEDS: NOVOLOG FLEXPEN-LOW RESISTANCE 1 UNITS SC (14:38)
--- NOTE | 2023-08-29 15:32 | W.PN.CARDCBS ---
Today's Communication / Plan
-
Continue amiodarone load 400 mg TID
Monitor on telemetry
Encourage OOB/PT/OT
Replete Electrolytes
Impression / Plan
-
Primary Physician: Maye Peña DO
Primary Electric Furnace Operator: Guy Connor MD, ATC
Impression:
VT storm with multiple failed ICD therapies and then successful AICD shock 08/27/23
Atrial Tachycardia/SVT (noted on device interrogation)
Elevated Troponin
ICM EF 25-30% by echo 08/25/23
s/p Medtronic RESEARCH INSTRUCTOR-D 05/2023
CAD s/p 3.5 mm and 3.5 mm Xience to RCA 01/15/23
CAD with residual small vessel CAD by cath 01/15/23; No change to CAD on [facility] 08/28/2023
[facility]
HTN
HLD
DM2
LBBB
Active smoker
Echo 08/25/23: ATC study, EF 25-30%, sev conc LVH, grade I diastolic dysfunction, normal RV size and function
[facility] 08/28/2023: Recent to mid and distal RCA stents from January, widely patent. Mild to moderate coronary artery disease otherwise which appears stable angiographically compared to heart catheterization from January,. Normal LVEDP at
12 mmHg.
Echo 08/28/2023: Dilated cardiomyopathy severely reduced LVEF and systolic function, 15 to 20%; no LV thrombus; grade 1 diastolic function, normal RV size and function; right-sided device wires present; trace to mild MR; normal aortic valve without
stenosis or regurgitation, trivial TR, no pericardial effusion, no prior study for comparison.
Plan:
-Patient came to [facility] last night with ICD shocks and cardiology is now consulted. Patient has a h/o ICM with RCA PCI 01/2023. EF did not improve with PCI and medical therapy so he had Medtronic RESEARCH INSTRUCTOR-D placed 05/2023. Patient had a right T[facility] at [facility] last month and says he has been feeling tired and dizzy with changes in position since then. He just started rehab within the last 2 weeks and is able to complete his sessions, but is exhausted. No chest pain or SOB. Patient was in the shower
last night and upon leaving the shower he felt dizzy and the next thing he recalls is waking up on the floor. He says he feels fine now.
-Patient with recurrence of VT on tele at 0745 this AM. He was not taking an AAD prior to admission. IV Amiodarone completed (1g); now on 400 mg TID (received 3 doses so far); 400 mg TID through the weekend to allow for at least 5 g load; then can
taper as outpatient (400 BID for 1 week, 400 mg daily for 1 week, then 200 mg daily). Discussed with Dr. Connor over the phone this morning and with the [facility] rounding service.
-Potassium 3.6 last night and again this AM. Will give KCl 40 meq PO now. Magnesium is 1.9. Will supplement with magnesium oxide 500 mg PO now.
-Echo from Friday at [facility] obtained and reviewed above. Called to request records form [facility]. Records obtained and summarized above.
-Troponin up to 1.2. No chest pain. ECG reviewed by me is paced.He interrupted Plavix for TKA last month, but has been back on DAPT using aspirin 162 mg daily for the last 3 weeks.
-Cont Farxiga 10 mg daily, spironolactone 25 mg HS, lisinopril 2.5 mg daily and Toprol XL 100 mg daily.
Progress Note - Electric Furnace Operator
Subjective
Date of Service: August 29, 2023
Patient seen and examined morning. No acute events overnight. No VT or atrial arrhythmias noted on telemetry x24 hours. patient reports no chest pain, shortness of breath, palpitations, lightheadedness, dizziness or weakness.
Objective
Labs:
08/29/23 04:06
08/29/23 06:19
Labs
Hgb 12.1 g/dL (13.0-18.0) L 08/29/23 04:06
Hct 36.5 % (39.0-52.0) L 08/29/23 04:06
Plt Count 233 10^3/uL (130-400) 08/29/23 04:06
PT 13.3 Sec (11.4-14.6) 08/27/23 22:37
INR 1.01 08/27/23 22:37
Sodium 136 mmol/L (135-145) 08/29/23 06:19
Potassium 4.4 mmol/L (3.5-5.1) 08/29/23 06:19
BUN 15 mg/dl (9-20) 08/29/23 06:19
Creatinine 1.0 mg/dL (0.7-1.3) 08/29/23 06:19
Glucose 146 mg/dl (70-99) H 08/29/23 06:19
Troponins
08/27/23 08/28/23 08/28/23
22:37 05:54 12:04
Troponin I 0.194 H* 1.200 H* D 0.833 H* D
08/28/23
17:41
Troponin I Cancelled
Vital Signs and I&O:
Vital Signs
Temp Pulse Resp BP Pulse Ox
97.7 F 90 16 101/70 97
08/29/23 11:45 08/29/23 12:00 08/29/23 11:45 08/29/23 11:45 08/29/23 11:45
Vital Signs
Temp Pulse Resp BP Pulse Ox
97.7 F 90 16 101/70 97
08/29/23 11:45 08/29/23 12:00 08/29/23 11:45 08/29/23 11:45 08/29/23 11:45
Intake & Output
08/27/23 08/28/23 08/29/23 08/30/23
06:59 06:59 06:59 06:59
Intake Total 360 / 360
Output Total 1400 / 1400
Balance -1040 / -1040
Physical Exam
Physical Exam
GEN: NAD, AAOx3
HEENT: EOMI, MMM
LUNGS: CTA B/L, no wheezes or rales
CV: Reg, S1/S2, no murmur; L CIED site well healed
ABD: soft, BS+, NT, ND
EXT: No clubbing, cyanosis, lesions or edema B/L
NEURO: Gross non-focal
SKIN: Warm, dry and pink. No rash
--- NOTE | 2023-08-29 15:57 | PN.CDI ---
CDI
- -
CDI:
Physician Documentation Request
Admit Date: 08/28/23 04:18
Dear Doctor Troy,
Clinical Indicators:
Patient admitted with VT storm.
08/28 PN, 's/p cardiac cath 08/27 unrevealing... Mild to moderate CAD appears stable.'
Troponin trend:
08/27/23 08/28/23 08/28/23
22:37 05:54 12:04
Troponin I 0.194 H* 1.200 H* D 0.833 H* D
Based on the above, could you clarify in the progress notes, the appropriate diagnosis, if significant, that supports the above abnormalities and additional evaluation, monitoring and/or treatment rendered:
Non ischemic myocardial injury
Elevated troponin only
Other, please specify
Use of terms such as suspected, likely, concern for, or probable (associated with a specific diagnosis that is being evaluated, monitored, or treated as if it exists) are acceptable and can be coded in the inpatient setting, when documented at the
time of discharge.
Thank you,
PATRICK Prince RN
CDI Specialist
available via tiger text
Please use your independent medical judgment in providing your response.
[2023-08-29 17:53] LABS: Glucose - Point of Care 179 mg/dl (70-99)
--- NOTE | 2023-08-29 17:53 | PTCARENOTE ---
The patient's BSG was 179. The patient refuses his 1 unit of Novolog. He states that he will just wait until he get his 10 units of Lantus tonight. I explained to his the difference between the insulins and he still refused the Novolog.
[2023-08-29 22:04] LABS: Glucose - Point of Care 193 mg/dl (70-99)
[2023-08-29] MEDS: ALDACTONE 25 MG PO (22:27)
[2023-08-29] MEDS: ASPIR LOW (ENTERIC COATED) 162 MG PO (22:28)
[2023-08-29] MEDS: LIPITOR 40 MG PO (22:29)
[2023-08-29] MEDS: FARXIGA 10 MG PO (22:29)
[2023-08-29] MEDS: LANTUS 0.100000000000000006 UNITS SC (22:29)
[2023-08-29] MEDS: LYRICA 150 MG PO (22:30)
[2023-08-29] MEDS: PLAVIX 75 MG PO (22:31)
[2023-08-29] MEDS: TOPROL XL 100 MG PO (22:31)
[2023-08-29] MEDS: TYLENOL 650 MG PO (22:32)
[2023-08-29] MEDS: ZESTRIL 2.5 MG PO (22:46)
[2023-08-29] MEDS: ZESTRIL PO (23:35)
--- NOTE | 2023-08-29 23:59 | PTCARENOTE ---
pt c/o right knee discomfort. tylenol given as ordered for pain.
[2023-08-30 04:34] VITALS: BP 101/63
[2023-08-30 04:53] LABS: Hematocrit 37.6 % (39.0-52.0); Mean Corp Hgb Conc. 34.6 g/dL (33.0-37.0); Mean Corpuscular Hgb 28.7 pg (27.0-31.0); Mean Platelet Volume 9.9 fL (7.4-10.4); Platelet Count 253 10^3/uL (130-400); Red Blood Cell Count 4.53 10^6/uL (4.70-6.10); White Blood Cell Count 8.6 10^3/uL (4.8-10.8)
[2023-08-30 05:15] LABS: Blood Urea Nitrogen 20 mg/dl (9-20); Calcium 9.2 mg/dl (8.4-10.2); Carbon Dioxide 23 mmol/L (22-30); Chloride 105 mmol/L (98-107); Estimated Creatinine Clearance 74 ml/min; Glucose 132 mg/dl (70-99); Magnesium 2.1 mg/dl (1.6-2.3); Potassium 3.9 mmol/L (3.5-5.1); Sodium 137 mmol/L (135-145); eGFR > 60.00
[2023-08-30 06:00] VITALS: BMI 23.7
[2023-08-30 06:59] VITALS: BP 93/67
[2023-08-30] MEDS: PACERONE 400 MG PO ×3 (07:34→22:17)
[2023-08-30] MEDS: FLUSH (NSS) 1 FLUSH IV (07:35)
[2023-08-30 08:12] LABS: Glucose - Point of Care 148 mg/dl (70-99)
[2023-08-30] MEDS: NOVOLOG FLEXPEN-LOW RESISTANCE SC (08:13)
--- NOTE | 2023-08-30 09:03 | W.PN.HOSP.TC ---
Today's Communication/Plan
-
see A/P
Assessment / Plan
Assessment / Plan
HPI: 63y M with PMH significant for ASCVD, cardiomyopathy and DM-II who presented to ED for evaluation after his AICD fired multiple times at home. Patient states that he has been feeling relatively poorly for the past 2-3 days or so. He reported
mild symptoms of lightheadedness / dizziness, dyspnea with activity and fatigue. No chest pain. No palpitations. No fevers / chills or other complaints.
In the evening of admission, he stepped out of the shower and felt a sudden, heavy pain in his chest. He had an additional 3 episodes while in the bathroom and then another 6 episodes several minutes later.
Patient states that his defibrillator has never gone off previously.
He denies LOC or complete collapse during these episodes.
His last shock occurred just prior to EMS arrival - none since that time.
A/P:
# ASCVD
# Ischemic Cardiomyopathy
# Chronic HFrEF
# VT / VF secondary to the above
Device interrogation noted VT with 14 total shocks (patient appreciated 9) - 13 of which failed. Final shock was successful and patient is now in V paced rhythm.
s/p cardiac cath 08/27 unrevealing: Patent mid and distal RCA stents from January,. Mild to moderate CAD appears stable
Echo noted EF 15 to 20%, Grade 1 diastolic dysfunction
Pt was started with Amio per Card, cont amio load
Continue usual CV med regimen.
Cardiology on board
# DM-II - Stable.
Continue basal : bolus insulin regimen. Lantus at 10 units HS
Follow glucose and cover with SSI as needed.
A1C 7.4%.
# s/p R TKA
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
Recovery doing well per patient. Incision healing well.
Pain control as needed.
PT eval.
DVT Prophylaxis: SCDs
Code Status: Full
DW RN
Anticipated Discharge: > 48 hours
Subjective/Interval History
-
Date of Service: August 30, 2023
Objective Data
-
Labs:
Laboratory Results
08/30/23
04:43
WBC 8.6
Hgb 13.0
Hct 37.6 L
Plt Count 253
Sodium 137
Potassium 3.9
Chloride 105
Carbon Dioxide 23
BUN 20
Creatinine 1.1
Glucose 132 H
Calcium 9.2
Vital Signs:
Vital Signs
Temp Pulse Resp BP Pulse Ox
36.5 C 61 18 93/67 99
08/30/23 07:00 08/30/23 07:00 08/30/23 07:00 08/30/23 06:59 08/30/23 07:00
I&O
08/29/23 08/30/23 08/31/23
06:59 06:59 06:59
Intake Total 360 / 360
Output Total 1400 / 1400
Balance -1040 / -1040
Review of Systems
-
All other systems: Reviewed and negative
Physical Exam
-
General: Well Developed, Well Nourished, No Apparent Distress, Comfortable and Conversant; Negative Respiratory Distress
HEENT: Normocephalic, Atraumatic, Nose Appears Normal and Ears Appear Normal; Negative Oxygen
Respiratory: Clear to Auscultation and Non Labored Respirations; Negative Accessory Resp Muscle Use
Cardiac: Regular Rhythm and S1/S2
GI: Soft, Nontender, Nondistended and Normal Bowel Sounds
Skin: Warm and Dry
Neuro: Awake, Alert, Oriented and AO x 3
Psych: Calm and Intact Judgement/Insight
Data Reviewed
-
Labs: Labs Reviewed by me
--- NOTE | 2023-08-30 09:54 | W.PN.CARDCBS ---
Addendum entered and electronically signed by Divina Sabillon DO 08/30/23 17:20:
I saw and examined the patient.
The Manager Of Medical's note was reviewed and I agree with the note.
Comment: Patient seen and examined. Ambulating around room and feeling well anxious to go home. Denies chest pain or pressure, shortness of breath, edema, palpitations or dizziness. No further ICD shocks
General: No acute distress, AAOX3
Neck: Negative JVD
Heart: Regular, positive S1/S2, 1/6 SM. Device site intact
Lungs: CTA b/l, negative wheezes/rales/rhonchi
Abd: Positive BS, NT/ND, neg rebound/rigidity/guarding
Ext: Right total knee replacement 07/31/2023 with mild knee swelling. No lower extremity edema. Right radial wrist site intact
Neuro: nonfocal
Plan:
-Presented 08/27/2023 with VT storm and multiple shocks on ICD.
-Patient with recurrence of VT on tele at 0745 08/28/2023 AM. He was not taking an AAD prior to admission.
-Left heart catheterization 08/28/2023 with stable disease
-Discussed plan with EP with plan for amiodarone load 5 g as an inpatient
-Started on IV Amiodarone gtt 08/28/2023. Per pharmacy he got 661 mg load from gtt. Started oral Amiodarone 08/28/2023 and has had 2400 mg load so far (6 doses) as of 08/30/23 in am. We would like him to get at least 5 gram load prior to d/c (this
would be completed 08/30 after 6 pm evening dose).
-At time of discharge she will start amiodarone 400 BID for 1 week (08/31 to 09/06), 400 mg daily for 1 week (09/07 to 09/14/23) , then 200 mg daily starting 09/14.
-EKG 08/30/2023 A sensed V paced rhythm 69 bpm, QTc 537 ms
-Potassium 3.9 this AM. Will give KCl 20 meq PO now. Magnesium is 2.1. Repeat lytes in am
-TSH within normal limits, 1.33 on 08/28/2023
Ischemic cardiomyopathy appears euvolemic
-Continue goal-directed medical therapy
-Blood pressure trends normotensive
-Left heart catheterization with stable anatomy. Troponin peaked at 1.2 secondary to ICD shocks.
-Continue aspirin/Plavix.
-Cont Farxiga 10 mg daily, spironolactone 25 mg HS, lisinopril 2.5 mg daily and Toprol XL 100 mg daily.
Type 2 diabetes mellitus, uncontrolled but improved
-Hemoglobin A1c in May 2023 was 8.2% currently 7.4%
-Importance of glycemic control stressed
Recent right total knee replacement at [facility] July 2023
-Would hold resuming outpatient physical therapy until cleared by his outpatient wood calker
Active tobacco user�cessation strongly advised
- Dr. Connor was updated
Original Note:
Today's Communication / Plan
-
Continue Amiodarone load
Repeat potassium
Impression / Plan
-
Primary Physician: Maye Peña DO
Primary Lubricating Machine Tender: Guy Connor MD, ATC
EP: Dr. Martinez
Impression:
VT storm with multiple failed ICD therapies and then successful AICD shock 08/27/23
Atrial Tachycardia/SVT (noted on device interrogation)
Elevated Troponin
ICM EF 25-30% by echo 08/25/23
s/p Medtronic CHEMICAL CHECKER-D 05/2023
CAD s/p 3.5 mm and 3.5 mm Xience to RCA 01/15/23
CAD with residual small vessel CAD by cath 01/15/23; No change to CAD on [facility] 08/28/2023
s/p Right TKA at [facility] 07/2023
HTN
HLD
DM2
LBBB
Active smoker
Echo 08/25/23: ATC study, EF 25-30%, sev conc LVH, grade I diastolic dysfunction, normal RV size and function
C 08/28/2023: Recent to mid and distal RCA stents from January, widely patent. Mild to moderate coronary artery disease otherwise which appears stable angiographically compared to heart catheterization from January,. Normal LVEDP at
12 mmHg.
Echo 08/28/2023: Dilated cardiomyopathy severely reduced LVEF and systolic function, 15 to 20%; no LV thrombus; grade 1 diastolic function, normal RV size and function; right-sided device wires present; trace to mild MR; normal aortic valve without
stenosis or regurgitation, trivial TR, no pericardial effusion, no prior study for comparison.
Plan:
-Presented 08/27/2023 with VT storm and multiple shocks on ICD.
-Patient with recurrence of VT on tele at 0745 08/28/2023 AM. He was not taking an AAD prior to admission.
-Patient wanting to go home. Discussed importance of continuing 5 g load as noted below. Patient is agreeable to stay until evening of 08/31/2023 and receive third dosing around 6 PM and then be discharged thereafter. This plan was discussed with
hospitalist Dr. Simmons who was also in agreement.
-Started on IV Amiodarone gtt 08/28/2023. Per pharmacy he got 661 mg load from gtt. Started oral Amiodarone 08/28/2023 and has had 2400 mg load so far (6 doses) as of 08/30/23 in am. We would like him to get at least 5 gram load prior to d/c (this
would be completed 08/30 after 6 pm evening dose).
-Upon d/c continue outpatient dosing of Amiodarone 400 BID for 1 week (08/31 to 09/06), 400 mg daily for 1 week (09/07 to 09/14/23) , then 200 mg daily starting 09/14.
-EKG 08/30/2023 A sensed V paced rhythm 69 bpm, QTc 537 ms
-Potassium 3.9 this AM. Will give KCl 20 meq PO now. Magnesium is 2.1. Repeat lytes in am
-Echo from Friday at [facility] obtained and reviewed above. Called to request records form [facility]. Records obtained and summarized above.
-Troponin peaked at 1.2. No chest pain. He interrupted Plavix for TKA last month, but has been back on DAPT using aspirin 162 mg daily for the last 3 weeks.
-Cont Farxiga 10 mg daily, spironolactone 25 mg HS, lisinopril 2.5 mg daily and Toprol XL 100 mg daily.
This admission plan was d/w with Dr. Connor over the phone and she was updated
[facility] 08/28/2023:
Patient came to [facility] last night with ICD shocks and cardiology is now consulted. Patient has a h/o ICM with RCA PCI 01/2023. EF did not improve with PCI and medical therapy so he had Medtronic CHEMICAL CHECKER-D placed 05/2023. Patient had a right TKA at [facility] last month and says he has been feeling tired and dizzy with changes in position since then. He just started rehab within the last 2 weeks and is able to complete his sessions, but is exhausted. No chest pain or SOB. Patient was in the shower
last night and upon leaving the shower he felt dizzy and the next thing he recalls is waking up on the floor. He says he feels fine now.
Progress Note - Lubricating Machine Tender
Subjective
Date of Service: August 30, 2023
Patient seen and examined. Patient reports he is feeling well. Denies additional episodes of dizziness or palpitations. Denies chest pain or shortness of
Objective
Labs:
08/30/23 04:43
08/30/23 04:43
Labs
Hgb 13.0 g/dL (13.0-18.0) 08/30/23 04:43
Hct 37.6 % (39.0-52.0) L 08/30/23 04:43
Plt Count 253 10^3/uL (130-400) 08/30/23 04:43
PT 13.3 Sec (11.4-14.6) 08/27/23 22:37
INR 1.01 08/27/23 22:37
Sodium 137 mmol/L (135-145) 08/30/23 04:43
Potassium 3.9 mmol/L (3.5-5.1) 08/30/23 04:43
BUN 20 mg/dl (9-20) 08/30/23 04:43
Creatinine 1.1 mg/dL (0.7-1.3) 08/30/23 04:43
Glucose 132 mg/dl (70-99) H 08/30/23 04:43
Troponins
08/27/23 08/28/23 08/28/23
22:37 05:54 12:04
Troponin I 0.194 H* 1.200 H* D 0.833 H* D
08/28/23
17:41
Troponin I Cancelled
Vital Signs and I&O:
Vital Signs
Temp Pulse Resp BP Pulse Ox
97.7 F 61 18 93/67 99
08/30/23 07:00 08/30/23 07:00 08/30/23 07:00 08/30/23 06:59 08/30/23 07:00
Vital Signs
Temp Pulse Resp BP Pulse Ox
97.7 F 61 18 93/67 99
08/30/23 07:00 08/30/23 07:00 08/30/23 07:00 08/30/23 06:59 08/30/23 07:00
Intake & Output
08/28/23 08/29/23 08/30/23 08/31/23
06:59 06:59 06:59 06:59
Intake Total 360 / 360
Output Total 1400 / 1400
Balance -1040 / -1040
Physical Exam
Physical Exam
GEN: No distress, awake, Ox3
HEENT: supple, anicteric, mmm
LUNGS: CTA, no wheezes/rales
CV: Reg, S1/S2, no murmur, rub or gallops
ABD: soft, BS+, NT/ND
EXT: No edema, clubbing or cyanosis
NEURO: Gross non-focal
SKIN: No rash, warm, dry, pink
--- NOTE | 2023-08-30 10:32 | PTCARENOTE ---
The patient is still assisting on leaving today. I had a long discussion with him, his , and his daughter's yesterday concerning the cardiology's plan of care. We discussed the dysrhythmia that brought him here, the response of his AICD, and the
treatment with amiodarone to prevent further deadly rhythms. I stressed the importance of his amiodarone load prior to being discharge from the hospital. His family is in agreement that he should stay until the medication load is complete however,
the patient is not.
[2023-08-30] MEDS: KCL 20 MEQ PO (11:17)
[2023-08-30 11:28] VITALS: BP 93/75
[2023-08-30 11:48] LABS: Glucose - Point of Care 233 mg/dl (70-99)
[2023-08-30] MEDS: NOVOLOG FLEXPEN-LOW RESISTANCE 2 UNITS SC (12:11)
[2023-08-30 16:36] VITALS: BP 110/70
[2023-08-30 17:01] LABS: Glucose - Point of Care 158 mg/dl (70-99)
[2023-08-30] MEDS: NOVOLOG FLEXPEN-LOW RESISTANCE 1 UNITS SC (17:02)
[2023-08-30 18:41] VITALS: BP 111/77
[2023-08-30 21:05] LABS: Glucose - Point of Care 131 mg/dl (70-99)
[2023-08-30] MEDS: LANTUS 0.100000000000000006 UNITS SC (21:32)
[2023-08-30 22:11] VITALS: BP 114/76
[2023-08-30] MEDS: TOPROL XL 100 MG PO (22:15)
[2023-08-30] MEDS: LIPITOR 40 MG PO (22:16)
[2023-08-30] MEDS: PLAVIX 75 MG PO (22:16)
[2023-08-30] MEDS: ZESTRIL 2.5 MG PO (22:16)
[2023-08-30] MEDS: ASPIR LOW (ENTERIC COATED) 162 MG PO (22:16)
[2023-08-30] MEDS: FARXIGA 10 MG PO (22:17)
[2023-08-30] MEDS: LYRICA 150 MG PO (22:17)
[2023-08-30] MEDS: ALDACTONE 25 MG PO (22:18)
--- NOTE | 2023-08-31 00:38 | PTCARENOTE ---
Tele remains V paced, HR in the high 50's-60's at rest. Denies any pain or discomfort. VSS. Right radial site YENIFER and slightly ecchymotic, pt aware of activity restrictions. Patient is very adamant on wanting leaving today 08/30. Aware of POC, call
borges in reach.
[2023-08-31 04:11] VITALS: BP 99/62
[2023-08-31 04:24] VITALS: BMI 23.9
[2023-08-31 04:40] LABS: Hemoglobin 12.9 g/dL (13.0-18.0); Mean Corp Hgb Conc. 33.9 g/dL (33.0-37.0); Mean Corpuscular Hgb 29.1 pg (27.0-31.0); Mean Corpuscular Volume 85.8 fL (80.0-94.0); Mean Platelet Volume 9.9 fL (7.4-10.4); Platelet Count 236 10^3/uL (130-400); Red Blood Cell Count 4.43 10^6/uL (4.70-6.10); Red Cell Dist. Width 12.6 % (11.5-14.5); White Blood Cell Count 8.8 10^3/uL (4.8-10.8)
[2023-08-31 05:05] LABS: Blood Urea Nitrogen 20 mg/dl (9-20); Calcium 9.3 mg/dl (8.4-10.2); Carbon Dioxide 24 mmol/L (22-30); Chloride 104 mmol/L (98-107); Estimated Creatinine Clearance 63 ml/min; Glucose 126 mg/dl (70-99); Potassium 4.1 mmol/L (3.5-5.1); Sodium 136 mmol/L (135-145); eGFR > 60.00
[2023-08-31] MEDS: PACERONE 400 MG PO ×2 (08:02→15:53)
[2023-08-31 08:03] VITALS: BP 100/62
[2023-08-31 08:08] LABS: Glucose - Point of Care 133 mg/dl (70-99)
[2023-08-31] MEDS: NOVOLOG FLEXPEN-LOW RESISTANCE SC ×2 (08:16→12:49)
--- NOTE | 2023-08-31 08:39 | W.PN.HOSP.TC ---
Addendum entered and electronically signed by Nely Simmons MD 08/31/23 12:45:
total DC time 36 min
Original Note:
Today's Communication/Plan
-
DC home after pm Amio dose
Assessment / Plan
Assessment / Plan
HPI: 63y M with PMH significant for ASCVD, cardiomyopathy and DM-II who presented to ED for evaluation after his AICD fired multiple times at home. Patient states that he has been feeling relatively poorly for the past 2-3 days or so. He reported
mild symptoms of lightheadedness / dizziness, dyspnea with activity and fatigue. No chest pain. No palpitations. No fevers / chills or other complaints.
In the evening of admission, he stepped out of the shower and felt a sudden, heavy pain in his chest. He had an additional 3 episodes while in the bathroom and then another 6 episodes several minutes later.
Patient states that his defibrillator has never gone off previously.
He denies LOC or complete collapse during these episodes.
His last shock occurred just prior to EMS arrival - none since that time.
A/P:
# ASCVD
# Ischemic Cardiomyopathy
# Chronic HFrEF
# VT / VF secondary to the above
Device interrogation noted VT with 14 total shocks (patient appreciated 9) - 13 of which failed. Final shock was successful and patient is now in V paced rhythm.
s/p cardiac cath 08/27 unrevealing: Patent mid and distal RCA stents from January,. Mild to moderate CAD appears stable
Echo noted EF 15 to 20%, Grade 1 diastolic dysfunction
Pt was started with Amio per Card, cont amio load
Recc to DC Amio 400 BID for 1 week (08/31 to 09/06), 400 mg daily for 1 week (09/07 to 09/14/23) , then 200 mg daily starting 09/14.
Continue usual CV med regimen.
Cardiology on board
# DM-II - Stable.
Continue basal : bolus insulin regimen. Lantus at 10 units HS
Follow glucose and cover with SSI as needed.
A1C 7.4%.
# s/p R TKA
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
Recovery doing well per patient. Incision healing well.
Pain control as needed.
PT eval.
DVT Prophylaxis: SCDs
Code Status: Full
DW RN
Anticipated Discharge: Today
Subjective/Interval History
-
Date of Service: August 31, 2023
Objective Data
-
Labs:
Laboratory Results
08/31/23
04:24
WBC 8.8
Hgb 12.9 L
Hct 38.0 L
Plt Count 236
Sodium 136
Potassium 4.1
Chloride 104
Carbon Dioxide 24
BUN 20
Creatinine 1.3
Glucose 126 H
Calcium 9.3
Vital Signs:
Vital Signs
Temp Pulse Resp BP Pulse Ox
36.6 C 67 18 100/62 98
08/31/23 08:05 08/31/23 08:03 08/31/23 08:05 08/31/23 08:03 08/31/23 08:05
I&O
08/30/23 08/31/23 09/01/23
06:59 06:59 06:59
Intake Total 240 / 240
Balance 240 / 240
--- NOTE | 2023-08-31 10:46 | W.PN.CARDCBS ---
Today's Communication / Plan
-
Discharge home today
Impression / Plan
-
Primary Physician: Maye Peña DO
Primary Director Business Development: Guy Connor MD, ATC
EP: Dr. Martinez
Impression:
VT storm with multiple failed ICD therapies and then successful AICD shock 08/27/23
Atrial Tachycardia/SVT (noted on device interrogation)
Elevated Troponin
ICM EF 25-30% by echo 08/25/23
s/p Medtronic MANAGER OF DISASTER RECOVERY-D 05/2023
CAD s/p 3.5 mm and 3.5 mm Xience to RCA 01/15/23
CAD with residual small vessel CAD by cath 01/15/23; No change to CAD on [facility] 08/28/2023
s/p Right TKA at [facility] 07/2023
HTN
HLD
DM2
LBBB
Active smoker
Echo 08/25/23: ATC study, EF 25-30%, sev conc LVH, grade I diastolic dysfunction, normal RV size and function
[facility] 08/28/2023: Recent to mid and distal RCA stents from January, widely patent. Mild to moderate coronary artery disease otherwise which appears stable angiographically compared to heart catheterization from January,. Normal LVEDP at
12 mmHg.
Echo 08/28/2023: Dilated cardiomyopathy severely reduced LVEF and systolic function, 15 to 20%; no LV thrombus; grade 1 diastolic function, normal RV size and function; right-sided device wires present; trace to mild MR; normal aortic valve without
stenosis or regurgitation, trivial TR, no pericardial effusion, no prior study for comparison.
Plan:
-Presented 08/27/2023 with VT storm and multiple shocks on ICD.
-Patient with recurrence of VT on tele at 0745 08/28/2023 AM. He was not taking an AAD prior to admission.
-Left heart catheterization 08/28/2023 with stable disease
-Discussed plan with EP with plan for amiodarone load 5 g as an inpatient
-Started on IV Amiodarone gtt 08/28/2023. Per pharmacy he got 661 mg load from gtt. Started oral Amiodarone 08/28/2023 and has had 2400 mg load so far (6 doses) as of 08/30/23 in am. We would like him to get at least 5 gram load prior to d/c (this
would be completed 08/30 after 6 pm evening dose).
-At time of discharge she will start amiodarone 400 BID for 1 week (08/31 to 09/06), 400 mg daily for 1 week (09/07 to 09/14/23) , then 200 mg daily starting 09/14.
-EKG 08/31/2023. A sensed V paced. QTc 500 ms
-Potassium 4.1. Magnesium 2.
-TSH within normal limits, 1.33 on 08/28/2023
Ischemic cardiomyopathy appears euvolemic
-Continue goal-directed medical therapy
-Blood pressure trends normotensive
-Left heart catheterization with stable anatomy. Troponin peaked at 1.2 secondary to ICD shocks.
-Continue aspirin/Plavix.
-Cont Farxiga 10 mg daily, spironolactone 25 mg HS, lisinopril 2.5 mg daily and Toprol XL 100 mg daily.
Type 2 diabetes mellitus, uncontrolled but improved
-Hemoglobin A1c in May 2023 was 8.2% currently 7.4%
-Importance of glycemic control stressed
Recent right total knee replacement at [facility] July 2023
-Would hold resuming outpatient physical therapy until cleared by his outpatient bagel maker
Active tobacco user�cessation strongly advised
Plan for discharge home after evening dose of amiodarone
Updated Dr. Connor via text on 08/30/2023
Outpatient cardiac follow-up being arranged at [facility]; EP follow-up arranged with Dr. Fajardo
HPI 08/28/2023:
Patient came to [facility] last night with ICD shocks and cardiology is now consulted. Patient has a h/o ICM with RCA PCI 01/2023. EF did not improve with PCI and medical therapy so he had Medtronic MANAGER OF DISASTER RECOVERY-D placed 05/2023. Patient had a right TKA at [facility] last month and says he has been feeling tired and dizzy with changes in position since then. He just started rehab within the last 2 weeks and is able to complete his sessions, but is exhausted. No chest pain or SOB. Patient was in the shower
last night and upon leaving the shower he felt dizzy and the next thing he recalls is waking up on the floor. He says he feels fine now.
Progress Note - Director Business Development
Subjective
Date of Service: August 31, 2023
Patient seen and examined feels great. He is very happy about going home today. His daughter is present. We reviewed hospitalization new medication and plan after discharge. All questions were answered.
Objective
Labs:
08/31/23 04:24
08/31/23 04:24
Labs
Hgb 12.9 g/dL (13.0-18.0) L 08/31/23 04:24
Hct 38.0 % (39.0-52.0) L 08/31/23 04:24
Plt Count 236 10^3/uL (130-400) 08/31/23 04:24
PT 13.3 Sec (11.4-14.6) 08/27/23 22:37
INR 1.01 08/27/23 22:37
Sodium 136 mmol/L (135-145) 08/31/23 04:24
Potassium 4.1 mmol/L (3.5-5.1) 08/31/23 04:24
BUN 20 mg/dl (9-20) 08/31/23 04:24
Creatinine 1.3 mg/dL (0.7-1.3) 08/31/23 04:24
Glucose 126 mg/dl (70-99) H 08/31/23 04:24
Troponins
08/28/23 08/28/23
12:04 17:41
Troponin I 0.833 H* D Cancelled
Vital Signs and I&O:
Vital Signs
Temp Pulse Resp BP Pulse Ox
97.8 F 67 18 100/62 98
08/31/23 08:05 08/31/23 08:03 08/31/23 08:05 08/31/23 08:03 08/31/23 08:05
Vital Signs
Temp Pulse Resp BP Pulse Ox
97.8 F 67 18 100/62 98
08/31/23 08:05 08/31/23 08:03 08/31/23 08:05 08/31/23 08:03 08/31/23 08:05
Intake & Output
08/29/23 08/30/23 08/31/23 09/01/23
06:59 06:59 06:59 06:59
Intake Total 360 / 360 240 / 240
Output Total 1400 / 1400
Balance -1040 / -1040 240 / 240
Physical Exam
Physical Exam
General: No acute distress, AAOX3
Neck: Negative JVD
Heart: Regular, positive S1/S2, 1/6 SM. Device site intact
Lungs: CTA b/l, negative wheezes/rales/rhonchi
Abd: Positive BS, NT/ND, neg rebound/rigidity/guarding
Ext: Right total knee replacement 07/31/2023 with mild knee swelling. No lower extremity edema. Right radial wrist site intact
Neuro: nonfocal
[2023-08-31 11:18] VITALS: BP 107/67
--- NOTE | 2023-08-31 12:24 | W.DCSUMMARY ---
Discharge Summary
Discharge Data
Date of Admission: 08/28/23
Date of Discharge: 08/31/23
-
Pending Results: No
Hospital Course
Principal Diagnosis:
Ventricular tachycardia storm with multiple failed ICD therapies and then successful AICD shock 08/27/23
Chronic Diagnoses:�
Ischemic Cardiomyopathy
Chronic heart failure with reduced ejection fraction (EF 25-30% by echo 08/25/23) status post ICD placement
insulin-dependent diabetes, stable. A1C at 7.4%.
Status post right total knee replacement at [facility] 4 weeks prior to admission.
Consultations:�
Cardiology
Procedures:�
Cardiac cath 08/27 was unrevealing: Patent mid and distal RCA stents from January,. Mild to moderate CAD appears stable
Clinical course:�
This is a 63 year old male with past medical history as stated above, who presented with AICD firing multiple times at home.
Problem 1:
Ventricular tachycardia storm with multiple failed ICD therapies and then successful AICD shock 08/27/23.
Patient's device interrogation noted VT with 14 total shocks (patient appreciated 9)- 13 of which failed. Final shock was successful and patient then became V paced rhythm.
He underwent cardiac cath on 08/27, findings were unrevealing: patent mid and distal RCA stents from January,, mild to moderate CAD appears stable.
His Echo this admission again noted EF 15 to 20%, grade 1 diastolic dysfunction.
He was started with amiodarone per cardiology, and received some amiodarone loading during his hospital stay.
Given he was eager to be discharged home, he was recommended by cardiology to continue amiodarone at 400 BID for 1 week (08/31 to 09/06), then 400 mg daily for 1 week (09/07 to 09/14/23), then 200 mg daily starting 09/14.
As for the rest of his medical problems, they were stable during his hospital stay.
Discharge Plan
-
Patient Disposition: Home (Routine Discharge)
Discharge Diagnosis/Procedures: Ventricular tachycardia storm and multiple shocks on ICD; Ischemic Cardiomyopathy with Chronic heart failure with reduced ejection fraction
Condition: Fair
Diet: Low Cholesterol, 2 Gram Sodium, Diabetic, Carb Controlled and Restrict fluids to 48 oz
Driving Restrictions: No driving for 24 hours
Specialty Instructions: Weigh Daily- Call MD for wt gain/loss 3 lbs overnight/5 lbs in 1 week
Stand Alone Forms: DC Instructions- Cath/EP Lab
Referrals:
Maye Peña DO [Family Provider] - in less than 1 week
Guy Connor MD [Active] - in one to two weeks
Steven Martinez DO [Active] - in three to four weeks
Additional Discharge Medication Instructions: take Amiodarone 400 mg twice daily for 1 week (08/31 to 09/06), then 400 mg daily for 1 week (09/07 to 09/14/23), then 200 mg daily starting 09/14.
Prescriptions:
New
amiodarone [Pacerone] 200 mg Tablet
400 mg PO TID Qty: 150 0RF
Rx Instructions:
400mg BID for 1 week, 400mg daily for 1 week, then 200mg daily starting 09/14.
Continued
metoprolol succinate 50 mg Tablet Extended Release 24 Hr
100 mg PO HS
spironolactone 25 mg Tablet
25 mg PO HS
lisinopril 10 mg Tablet
2.5 mg PO HS
pregabalin 75 mg Capsule
150 mg PO HS
Patient Comments:
08/27/2023: LAST FILLED 08/04/23, 90 TABS FOR 30 DAYS FROM [facility]
dapagliflozin propanediol [Farxiga] 10 mg Tablet
10 mg PO HS
atorvastatin 40 mg tablet
40 mg PO HS
clopidogrel 75 mg tablet
75 mg PO HS
aspirin 81 mg Tablet,Delayed Release (Dr/Ec)
162 mg PO HS
acetaminophen 500 mg Tablet
1,000 mg PO Q8HPRN PRN (Reason: mild pain)
oxycodone 5 mg tablet
5 mg PO Q4HPRN PRN (Reason: moderate pain)
Patient Comments:
08/27/2023: last filled 08/22/23, 42 tabs for 7 days from [facility]
duloxetine 30 mg capsule,delayed release(DR/EC)
30 mg PO HS
insulin glargine [Lantus Solostar U-100 Insulin] 100 unit/mL (3 mL) insulin pen
10 unit SC HS
Discharge Orders:
Discharge Patient (As Directed); Ordered 08/31/23
Ordered By: Nely Simmons
Care Plan Goals
Care Plan Goals:
Problem: Readiness for enhanced knowledge related to diagnosis and treatment plan
Goal: Understand your diagnosis and treatment plan needs, including medications if applicable.
Instructions: Know your diagnosis, underlying causes and treatment plan options, including medications if applicable. Consult with your health care team to learn about your diagnosis and treatment plan, including medications if applicable.
Discharge Date and Time
Print Language: MOHAWK
[2023-08-31 12:48] LABS: Glucose - Point of Care 225 mg/dl (70-99)
--- NOTE | 2023-08-31 12:50 | PTCARENOTE ---
The patient refuses his lunch time sliding scale insulin. He states that he is not eating lunch and doesn't want any extra.
[2023-08-31 15:44] VITALS: BP 118/78
== END 2023-08-31 17:08 | disposition home or self-care (01) | DRG 287 ==
LOC: IVU 04:18
PROVIDERS: Emergency Medicine; Internal Medicine Interventional Cardiology; ADMITTING PHYSICIAN Hospitalist; ATTENDING PHYSICIAN Internal Medicine; EMERGENCY PHYSICIAN Emergency Medicine; FAMILY PHYSICIAN Internal Medicine; OTHER PHYSICIAN Internal Medicine Cardiovascular Disease
PROC: B2111ZZ Fluoroscopy of Multiple Coronary Arteries using Low Osmolar Contrast (ICD-10-PCS; 2023-08-28)
PROC: 4A023N7 Measurement of Cardiac Sampling and Pressure, Left Heart, Percutaneous Approach (ICD-10-PCS; 2023-08-28)
PROC: 4B02XTZ Measurement of Cardiac Defibrillator, External Approach (ICD-10-PCS; 2023-08-28)
PROC: B2151ZZ Fluoroscopy of Left Heart using Low Osmolar Contrast (ICD-10-PCS; 2023-08-28)
DX: I47.20 Ventricular tachycardia, unspecified (principal); I50.22 Chronic systolic (congestive) heart failure; I5A Non-ischemic myocardial injury (non-traumatic); I25.10 Atherosclerotic heart disease of native coronary artery without angina pectoris; I49.01 Ventricular fibrillation; I25.5 Ischemic cardiomyopathy; I11.0 Hypertensive heart disease with heart failure; E11.9 Type 2 diabetes mellitus without complications; F17.200 Nicotine dependence, unspecified, uncomplicated
CPT/HCPCS: 80048; 80053; 82962; 83036; 83735; 84443; 84484; 85025; 85027; 85610; 93005; 93289; 93306; 93458; 97162; 97166; 99285; C1894; Q9950; Q9967